=== PATIENT | male | born 1970 | race Two or more races ===

== ENCOUNTER 2024-03-15 10:22 | Emergency (ER) | payer OTHER ==
[~2024-03-15] VITALS: Ht 180.3 cm; Wt 96.6 kg
== END 2024-03-15 13:54 | disposition home or self-care (01) ==
LOC: ER 10:24
DX: S89.82XA Other specified injuries of left lower leg, initial encounter (principal); V49.88XA Car occupant (driver) (passenger) injured in other specified transport accidents, initial encounter; Y93.89 Activity, other specified; Y92.89 Other specified places as the place of occurrence of the external cause; Y99.8 Other external cause status; Z91.013 Allergy to seafood